=== PATIENT | male | born 1935 | race Caucasian/White ===

== ENCOUNTER 2020-04-24 20:26 | Emergency (ER) | payer OTHER ==
[~2020-04-24] VITALS: Ht 177.8 cm; Wt 61.2 kg
[2020-04-24 21:19] VITALS: BP 146/86
[2020-04-24 21:22] LABS: Basophils # (auto) 0 10 ^3/uL (0-0.2); Basophils % (auto) 0.5 % (0.0-2.0); Eosinophils # (auto) 0.1 10 ^3/uL (0-0.8); Hematocrit 34.4 % (41.0-53.0); Monocytes # (auto) 0.7 10 ^3/uL (0-1.3); Nucleated Red Blood Cells % 0.1 %
[2020-04-24 21:24] LABS: Eosinophils % (auto) 0.9 % (0.0-7.0); Hemoglobin 11.5 g/dL (13.5-17.5); Lymphocytes # (auto) 1.6 10 ^3/uL (0.4-5.4); Lymphocytes % (auto) 18.4 % (10.0-50.0); Mean Corpuscular Hgb Conc. 33.3 g/dL (32.0-36.0); Mean Corpuscular Volume 102.1 fL (80.0-100.0); Monocytes % (auto) 8.3 % (0.0-12.0); Neutrophils # (auto) 6.3 10 ^3/uL (1.6-8.6); Neutrophils % (auto) 71.9 % (37.0-80.0); Platelet Count (auto) 190 10^3/uL (140-450); Red Blood Cells 3.37 10^6/uL (4.5-5.90); Red Cell Distribution Width 14.9 % (11.8-14.3); White Blood Cell 8.8 10^3/uL (4.4-10.8)
[2020-04-24 21:31] LABS: Alanine Aminotransferase 10 U/L (16-61); Albumin 3.7 g/dL (3.4-5.0); Anion Gap 7 (5-15); Blood Urea Nitrogen 19 mg/dL (7-18); Calcium 8.5 mg/dL (8.5-10.1); Carbon Dioxide 24 mmol/L (21-32); Chloride 110 mmol/L (98-107); Glucose 102 mg/dL (74-106); Sodium 141 mmol/L (136-145)
[2020-04-24 21:37] LABS: Alkaline Phosphatase 74 U/L (45-117); Aspartate Aminotransferase 17 U/L (15-37); BUN/Creatinine Ratio 13.1; Bilirubin, Total 0.6 mg/dL (0.2-1.0); GFR African American 60 mL/min; GFR Non-African American 49 mL/min; Total Protein 7.3 g/dL (6.4-8.2)
== END 2020-04-24 22:47 | disposition home or self-care (01) ==
LOC: ER 20:27
DX: N20.0 Calculus of kidney (principal)
CPT/HCPCS: 36415; 74176; 80053; 84484; 85025; 93005

== ENCOUNTER 2020-12-08 15:03 | Emergency (ER) | payer OTHER ==
[~2020-12-08] VITALS: Ht 167.6 cm; Wt 61.2 kg
[2020-12-08 18:35] VITALS: BP 111/77
[2020-12-08 19:04] LABS: Basophils # (auto) 0 10 ^3/uL (0-0.2); Eosinophils # (auto) 0.1 10 ^3/uL (0-0.8); Monocytes # (auto) 0.5 10 ^3/uL (0-1.3); White Blood Cell 6.5 10^3/uL (4.4-10.8)
[2020-12-08 19:07] LABS: Basophils % (auto) 0.6 % (0.0-2.0); Eosinophils % (auto) 1.7 % (0.0-7.0); Hematocrit 34.3 % (41.0-53.0); Hemoglobin 11.7 g/dL (13.5-17.5); Lymphocytes # (auto) 1.7 10 ^3/uL (0.4-5.4); Mean Corpuscular Hemoglobin 34.2 pg (28.0-32.0); Mean Corpuscular Hgb Conc. 34.1 g/dL (32.0-36.0); Mean Corpuscular Volume 100.3 fL (80.0-100.0); Monocytes % (auto) 7.9 % (0.0-12.0); Neutrophils # (auto) 4.1 10 ^3/uL (1.6-8.6); Neutrophils % (auto) 62.8 % (37.0-80.0); Platelet Count (auto) 183 10^3/uL (140-450); Red Blood Cells 3.42 10^6/uL (4.5-5.90); Red Cell Distribution Width 14.8 % (11.8-14.3)
[2020-12-08 19:20] LABS: Albumin 3.6 g/dL (3.4-5.0); Calcium 8.7 mg/dL (8.5-10.1); Potassium 4.6 mmol/L (3.5-5.1)
[2020-12-08 19:22] LABS: BUN/Creatinine Ratio 15.6
[2020-12-08 19:25] LABS: Bilirubin, Total 0.6 mg/dL (0.2-1.0); Total Protein 7.3 g/dL (6.4-8.2)
== END 2020-12-08 18:51 | disposition left against medical advice (07) ==
LOC: ER 15:03
DX: M79.662 Pain in left lower leg (principal); I10 Essential (primary) hypertension
CPT/HCPCS: 36415; 73590; 80053; 83880; 85025; 93971

== ENCOUNTER 2021-01-10 16:35 | Inpatient (IN) | payer OTHER ==
[~2021-01-10] VITALS: Ht 177.8 cm; Wt 76.0 kg
[2021-01-10] MEDS ORDERED: SODIUM CHLORIDE 0.9% 1,000 ML IV ONE (17:00)
[2021-01-10 17:29] LABS: Eosinophils # (auto) 0.1 10 ^3/uL (0-0.8); Hemoglobin 10.7 g/dL (13.5-17.5); Lymphocytes # (auto) 0.8 10 ^3/uL (0.4-5.4); Monocytes # (auto) 0.4 10 ^3/uL (0-1.3); Neutrophils # (auto) 4.9 10 ^3/uL (1.6-8.6); White Blood Cell 6.2 10^3/uL (4.4-10.8)
[2021-01-10 17:30] LABS: Basophils # (auto) 0.1 10 ^3/uL (0-0.2); Basophils % (auto) 0.8 % (0.0-2.0); Eosinophils % (auto) 1.3 % (0.0-7.0); Hematocrit 31.2 % (41.0-53.0); Mean Corpuscular Hemoglobin 34.5 pg (28.0-32.0); Mean Corpuscular Hgb Conc. 34.3 g/dL (32.0-36.0); Mean Corpuscular Volume 100.4 fL (80.0-100.0); Monocytes % (auto) 6.4 % (0.0-12.0); Neutrophils % (auto) 78.5 % (37.0-80.0); Platelet Count (auto) 152 10^3/uL (140-450); Red Blood Cells 3.11 10^6/uL (4.5-5.90); Red Cell Distribution Width 14.9 % (11.8-14.3)
[2021-01-10 17:46] LABS: Albumin 3.1 g/dL (3.4-5.0); Anion Gap 7 (5-15); Blood Urea Nitrogen 20 mg/dL (7-18); Calcium 8.1 mg/dL (8.5-10.1); Carbon Dioxide 23 mmol/L (21-32); Chloride 114 mmol/L (98-107); Glucose 99 mg/dL (74-106); Potassium 4.1 mmol/L (3.5-5.1); Sodium 144 mmol/L (136-145)
[2021-01-10 17:51] LABS: Alanine Aminotransferase 11 U/L (16-61); Alkaline Phosphatase 63 U/L (45-117); Aspartate Aminotransferase 22 U/L (15-37); Bilirubin, Total 0.8 mg/dL (0.2-1.0); GFR African American 66 mL/min; GFR Non-African American 54 mL/min; Total Protein 6.2 g/dL (6.4-8.2)
[2021-01-10 17:54] LABS: Urine Bacteria FEW /hpf (None Seen); Urine Blood Negative /uL (Negative); Urine Hyaline Cast FEW /lpf (0 - 2); Urine Mucus FEW (None Seen); Urine Specific Gravity 1.013 (1.001-1.035); Urine WBC 24 /hpf (0 - 3); Urine WBC Clumps PRESENT /hpf (None Seen)
[2021-01-10] MEDS ORDERED: cefTRIAXone 1GM/50ML D5W 50 ML IV ONE (18:15)
[2021-01-10] MEDS ORDERED: MORPHINE SULF INJ 2 MG/ML SYRINGE 1ML IV PRN (19:45)
[2021-01-10] MEDS ORDERED: NITROGLYCERIN 0.4 MG SL TAB SL PRN (19:45)
[2021-01-10] MEDS ORDERED: HYDROcodone-ACET 5/325MG TAB PO PRN (19:45)
[2021-01-10] MEDS ORDERED: ONDANSETRON HCL 4 MG/2 ML VIAL IV PRN (19:45)
[2021-01-10] MEDS ORDERED: ACETAMINOPHEN 500 MG TAB PO PRN (19:45)
[2021-01-10 23:35] VITALS: BP 125/72
[2021-01-11 01:14] VITALS: BP 125/72
[2021-01-11 05:10] VITALS: BP 133/62
[2021-01-11 07:03] LABS: Basophils # (auto) 0 10 ^3/uL (0-0.2); Basophils % (auto) 0.6 % (0.0-2.0); Eosinophils # (auto) 0.2 10 ^3/uL (0-0.8); Monocytes # (auto) 0.7 10 ^3/uL (0-1.3); Nucleated Red Blood Cells % 0.1 %
[2021-01-11 07:05] LABS: Hematocrit 30.9 % (41.0-53.0); Hemoglobin 10.5 g/dL (13.5-17.5); Lymphocytes # (auto) 1.7 10 ^3/uL (0.4-5.4); Lymphocytes % (auto) 20.9 % (10.0-50.0); Mean Corpuscular Hemoglobin 34.7 pg (28.0-32.0); Mean Corpuscular Hgb Conc. 34.1 g/dL (32.0-36.0); Mean Corpuscular Volume 101.7 fL (80.0-100.0); Monocytes % (auto) 8.9 % (0.0-12.0); Neutrophils # (auto) 5.3 10 ^3/uL (1.6-8.6); Neutrophils % (auto) 67.6 % (37.0-80.0); Platelet Count (auto) 141 10^3/uL (140-450); Red Blood Cells 3.04 10^6/uL (4.5-5.90); White Blood Cell 7.9 10^3/uL (4.4-10.8)
[2021-01-11 07:20] LABS: BUN/Creatinine Ratio 16.2; Calcium 7.8 mg/dL (8.5-10.1); Potassium 4.2 mmol/L (3.5-5.1)
[2021-01-11] MEDS: cefTRIAXone 1GM/50ML D5W 50 ML IV SCH (08:53)
[2021-01-11 09:00] VITALS: BP 129/71
[2021-01-11] MEDS ORDERED: FAMOTIDINE 20 MG TAB PO SCH (10:00)
[2021-01-11] MEDS ORDERED: TERA5CAP42 PO (11:25)
[2021-01-11] MEDS ORDERED: TAMS0.4C36 PO (11:25)
[2021-01-11] MEDS ORDERED: SIMV-8 PO (11:25)
[2021-01-11] MEDS ORDERED: ATEN-60 PO (11:25)
[2021-01-11] MEDS ORDERED: ASPI-543 PO (11:25)
[2021-01-11] MEDS ORDERED: ASPirin 81 mg TAB PO ONE (11:30)
[2021-01-11] MEDS: SODIUM CHLORIDE 0.9% 1,000 ML IV SCH (11:47)
[2021-01-11 13:00] VITALS: BP 130/73
[2021-01-11 17:00] VITALS: BP 110/68
[2021-01-11] MEDS: TAMSULOSIN HYDROCHLORIDE 0.4 MG CAP PO SCH (17:39)
[2021-01-11] MEDS: ATORVASTATIN 20 MG TAB PO SCH (20:38)
[2021-01-11 22:00] VITALS: BP 137/60
[2021-01-11] MEDS: MORPHINE SULF INJ 2 MG/ML SYRINGE 1ML IV PRN (23:20)
[2021-01-12] MEDS: SODIUM CHLORIDE 0.9% 1,000 ML IV SCH ×2 (00:50→09:38)
[2021-01-12] MEDS: MORPHINE SULF INJ 2 MG/ML SYRINGE 1ML IV PRN (03:37)
[2021-01-12 05:00] VITALS: BP 146/86
[2021-01-12 07:15] LABS: Basophils # (auto) 0 10 ^3/uL (0-0.2); Eosinophils # (auto) 0.1 10 ^3/uL (0-0.8); Lymphocytes # (auto) 1.5 10 ^3/uL (0.4-5.4); Monocytes # (auto) 0.7 10 ^3/uL (0-1.3); Nucleated Red Blood Cells % 0.1 %
[2021-01-12 07:17] LABS: Basophils % (auto) 0.5 % (0.0-2.0); Eosinophils % (auto) 1.1 % (0.0-7.0); Hematocrit 34.3 % (41.0-53.0); Hemoglobin 11.8 g/dL (13.5-17.5); Lymphocytes % (auto) 16.3 % (10.0-50.0); Mean Corpuscular Hemoglobin 34.7 pg (28.0-32.0); Mean Corpuscular Hgb Conc. 34.5 g/dL (32.0-36.0); Mean Corpuscular Volume 100.5 fL (80.0-100.0); Monocytes % (auto) 7.9 % (0.0-12.0); Neutrophils # (auto) 6.6 10 ^3/uL (1.6-8.6); Neutrophils % (auto) 74.2 % (37.0-80.0); Platelet Count (auto) 152 10^3/uL (140-450); Red Blood Cells 3.41 10^6/uL (4.5-5.90); Red Cell Distribution Width 14.7 % (11.8-14.3)
[2021-01-12 07:26] LABS: BUN/Creatinine Ratio 14.2; Calcium 8.4 mg/dL (8.5-10.1); Potassium 4.1 mmol/L (3.5-5.1)
[2021-01-12] MEDS: ASPirin 81 mg TAB PO SCH (09:38)
[2021-01-12] MEDS: cefTRIAXone 1GM/50ML D5W 50 ML IV SCH (09:38)
[2021-01-12] MEDS ORDERED: FINASTERIDE 5 MG TAB PO ONE (11:15)
[2021-01-12] MEDS: Ensure HIGH Protein Chocolate 8oz Bottle PO SCH ×2 (15:24→18:41)
[2021-01-12] MEDS: TAMSULOSIN HYDROCHLORIDE 0.4 MG CAP PO SCH (18:41)
[2021-01-12] MEDS ORDERED: LORazepam 0.5 MG TAB PO PRN (19:30)
[2021-01-12] MEDS ORDERED: diphenhdrAMINE HCL 25 MG CAP PO PRN (19:30)
[2021-01-12] MEDS: ATORVASTATIN 20 MG TAB PO SCH (21:04)
[2021-01-12 22:00] VITALS: BP 111/75
[2021-01-13] VITALS (7 sets, daily range): BP systolic 98–173; BP diastolic 62–93
[2021-01-13] MEDS: SODIUM CHLORIDE 0.9% 1,000 ML IV SCH ×2 (03:30→18:12)
[2021-01-13] MEDS: Ensure HIGH Protein Chocolate 8oz Bottle PO SCH ×3 (08:37→18:12)
[2021-01-13 08:56] LABS: Urine Bacteria NONE SEEN /hpf (None Seen); Urine Blood Negative /uL (Negative); Urine WBC 2 /hpf (0 - 3)
[2021-01-13] MEDS: cefTRIAXone 1GM/50ML D5W 50 ML IV SCH (10:08)
[2021-01-13] MEDS: FINASTERIDE 5 MG TAB PO SCH (10:08)
[2021-01-13] MEDS: ASPirin 81 mg TAB PO SCH (10:08)
[2021-01-13] MEDS: TAMSULOSIN HYDROCHLORIDE 0.4 MG CAP PO SCH (18:00)
[2021-01-13] MEDS ORDERED: CYANOCOBALAMIN (B-12) 1000 MCG/1 ML VIAL IM ONE (20:45)
[2021-01-13] MEDS: ATORVASTATIN 20 MG TAB PO SCH (22:38)
[2021-01-13 23:29] LABS: Cholesterol 105 mg/dL (< 200); HDL Cholesterol 36 mg/dL (40-59); LDL Cholesterol 57 mg/dL (< 100); Triglycerides 55 mg/dL (< 150)
[2021-01-14 05:00] VITALS: BP 133/79
[2021-01-14] MEDS: SODIUM CHLORIDE 0.9% 1,000 ML IV SCH (06:21)
[2021-01-14 06:53] LABS: Albumin 3.2 g/dL (3.4-5.0); Calcium 8.3 mg/dL (8.5-10.1); Potassium 3.9 mmol/L (3.5-5.1)
[2021-01-14 06:55] LABS: Basophils # (auto) 0 10 ^3/uL (0-0.2); Basophils % (auto) 0.3 % (0.0-2.0); Eosinophils # (auto) 0.1 10 ^3/uL (0-0.8); Eosinophils % (auto) 1.8 % (0.0-7.0); Hemoglobin 11.3 g/dL (13.5-17.5); Lymphocytes # (auto) 1.3 10 ^3/uL (0.4-5.4); Lymphocytes % (auto) 15.2 % (10.0-50.0); Mean Corpuscular Hemoglobin 34.6 pg (28.0-32.0); Mean Corpuscular Hgb Conc. 34.3 g/dL (32.0-36.0); Mean Corpuscular Volume 100.9 fL (80.0-100.0); Monocytes # (auto) 0.7 10 ^3/uL (0-1.3); Monocytes % (auto) 8.7 % (0.0-12.0); Neutrophils # (auto) 6.2 10 ^3/uL (1.6-8.6); Nucleated Red Blood Cells % 0.1 %; Platelet Count (auto) 175 10^3/uL (140-450); Red Blood Cells 3.27 10^6/uL (4.5-5.90); White Blood Cell 8.4 10^3/uL (4.4-10.8)
[2021-01-14 06:58] LABS: Bilirubin, Total 0.8 mg/dL (0.2-1.0); Total Protein 6.7 g/dL (6.4-8.2)
[2021-01-14] MEDS: Ensure HIGH Protein Chocolate 8oz Bottle PO SCH ×3 (08:11→17:56)
[2021-01-14 08:32] VITALS: BP 135/88
[2021-01-14] MEDS: cefTRIAXone 1GM/50ML D5W 50 ML IV SCH (09:08)
[2021-01-14] MEDS: ASPirin 81 mg TAB PO SCH (09:52)
[2021-01-14] MEDS: CYANOCOBALAMIN 500 MCG TAB PO SCH (09:52)
[2021-01-14] MEDS: FINASTERIDE 5 MG TAB PO SCH (09:52)
[2021-01-14 12:56] VITALS: BP 118/80
[2021-01-14 16:36] VITALS: BP 117/70
[2021-01-14] MEDS: TAMSULOSIN HYDROCHLORIDE 0.4 MG CAP PO SCH (18:01)
[2021-01-14 22:00] VITALS: BP 128/77
[2021-01-14] MEDS: ATORVASTATIN 20 MG TAB PO SCH (22:44)
[2021-01-15] MEDS: SODIUM CHLORIDE 0.9% 1,000 ML IV SCH ×2 (01:46→09:58)
[2021-01-15 05:00] VITALS: BP 120/60
[2021-01-15 07:34] LABS: Basophils # (auto) 0 10 ^3/uL (0-0.2); Basophils % (auto) 0.2 % (0.0-2.0); Eosinophils # (auto) 0.2 10 ^3/uL (0-0.8); Hematocrit 31.5 % (41.0-53.0); Hemoglobin 10.8 g/dL (13.5-17.5); Lymphocytes # (auto) 1.5 10 ^3/uL (0.4-5.4); Lymphocytes % (auto) 21.6 % (10.0-50.0); Mean Corpuscular Hemoglobin 34.2 pg (28.0-32.0); Mean Corpuscular Hgb Conc. 34.1 g/dL (32.0-36.0); Mean Corpuscular Volume 100.4 fL (80.0-100.0); Monocytes # (auto) 0.7 10 ^3/uL (0-1.3); Monocytes % (auto) 10.2 % (0.0-12.0); Neutrophils # (auto) 4.6 10 ^3/uL (1.6-8.6); Nucleated Red Blood Cells % 0.1 %; Platelet Count (auto) 172 10^3/uL (140-450); Red Blood Cells 3.14 10^6/uL (4.5-5.90); Red Cell Distribution Width 14.2 % (11.8-14.3); White Blood Cell 7.1 10^3/uL (4.4-10.8)
[2021-01-15 07:42] LABS: BUN/Creatinine Ratio 20.4; Calcium 8.1 mg/dL (8.5-10.1); Potassium 4.2 mmol/L (3.5-5.1)
[2021-01-15 09:35] VITALS: BP 149/98
[2021-01-15] MEDS: Ensure HIGH Protein Chocolate 8oz Bottle PO SCH (09:58)
[2021-01-15] MEDS: cefTRIAXone 1GM/50ML D5W 50 ML IV SCH (09:58)
[2021-01-15] MEDS: FINASTERIDE 5 MG TAB PO SCH (09:59)
[2021-01-15] MEDS: ASPirin 81 mg TAB PO SCH (09:59)
[2021-01-15] MEDS ORDERED: ATENOLOL 50 MG TAB PO SCH (10:00)
[2021-01-15] MEDS: CYANOCOBALAMIN 500 MCG TAB PO SCH (10:01)
[2021-01-15 11:05] VITALS: BP 149/77
== END 2021-01-15 12:00 | disposition home or self-care (01) | DRG 871 ==
LOC: EDBD 16:35 → ER 16:35 → TELE 19:38 → TELE-CENTR 23:28
PROVIDERS: ADMIT Nurse Practitioner Acute Care; ATTEND Internal Medicine
DX: A41.9 Sepsis, unspecified organism (principal); G92 Toxic encephalopathy; N17.0 Acute kidney failure with tubular necrosis; T67.01XA Heatstroke and sunstroke, initial encounter; F05 Delirium due to known physiological condition; N30.00 Acute cystitis without hematuria; I25.10 Atherosclerotic heart disease of native coronary artery without angina pectoris; N18.31 Chronic kidney disease, stage 3a; E86.0 Dehydration; D64.9 Anemia, unspecified; E78.5 Hyperlipidemia, unspecified; F01.50 Vascular dementia, unspecified severity, without behavioral disturbance, psychotic disturbance, mood disturbance, and anxiety; F17.200 Nicotine dependence, unspecified, uncomplicated; G89.4 Chronic pain syndrome; I12.9 Hypertensive chronic kidney disease with stage 1 through stage 4 chronic kidney disease, or unspecified chronic kidney disease; M19.90 Unspecified osteoarthritis, unspecified site; N40.0 Benign prostatic hyperplasia without lower urinary tract symptoms; Z20.822 Contact with and (suspected) exposure to COVID-19; T67.5XXA Heat exhaustion, unspecified, initial encounter; X30.XXXA Exposure to excessive natural heat, initial encounter; Z79.82 Long term (current) use of aspirin; Z79.899 Other long term (current) drug therapy; Z95.5 Presence of coronary angioplasty implant and graft; Z86.73 Personal history of transient ischemic attack (TIA), and cerebral infarction without residual deficits
CPT/HCPCS: 36415; 51702; 70450; 71045; 80048; 80053; 80061; 81001; 82140; 82550; 82607; 83735; 84154; 84443; 84484; 85025; 87086; 87088; 87186; 87426; 93005; 93306; 93886; 93970; 96361; 96365; 97110; 97116; 97163; 97530; 99291; G0378; J0696